=== PATIENT | male | born 1950 | race Caucasian/White ===

== ENCOUNTER 2017-09-01 13:44 | Emergency (ER) | payer MEDICARE, OTHER ==
[~2017-09-01] VITALS: Ht 180.3 cm; Wt 113.4 kg
[2017-09-01] MEDS ORDERED: LIDOCAINE HCL 1% LOCAL INJ 20 ML VIAL INJ ONE (16:00)
[2017-09-01] MEDS ORDERED: BUPIVACAINE HCL 0.5% 10ML MPF VIAL INJ ONE (16:07)
[2017-09-01] MEDS ORDERED: TETANUS/DIPHTHERIA TOX ADULT 0.5 ML SYR IM ONE (16:15)
[2017-09-01] MEDS ORDERED: CEFAZOLIN SOD 500 MG VIAL IM ONE (16:15)
[2017-09-01 17:09] VITALS: BP 174/95
--- NOTE | 2017-09-01 17:29 | Diagnostic Imaging Report ---
PROCEDURE:X-RAY RIGHT FINGER COMPARISON:None. INDICATIONS:CUT RIGHT MIDDLE FINGER TIP OFF FINDINGS: See conclusion. CONCLUSION: No acute fracture or dislocation of the right third finger. Dictated by: Gerardo Banerjee M.D. on 09/01/2017 at 17:28 Electronically approved by: Gerardo Banerjee M.D. on 09/01/2017 at 17:28
== END 2017-09-01 17:16 | disposition home or self-care (01) ==
LOC: ER 13:44
DX: S68.122A Partial traumatic metacarpophalangeal amputation of right middle finger, initial encounter (principal); W23.0XXA Caught, crushed, jammed, or pinched between moving objects, initial encounter; Y92.511 Restaurant or cafe as the place of occurrence of the external cause; I10 Essential (primary) hypertension
CPT/HCPCS: 12001; 73140; 99283; J0690; J2001